=== PATIENT | male | born 1970 | race Caucasian/White ===

== ENCOUNTER 2024-06-25 12:40 | Outpatient (OUT) | payer OTHER, SELFPAY ==
--- NOTE | 2024-06-25 13:15 | RT_ITS ---
[facility] Test Date: 2024-06-25 Pat Name: MANSI GRIDER Department: Room: - Gender: Male [employer] Professor: Regan Montano RRT : 1970 Requested By: [id number] Order Number: [id number] Reading MD: Main Anne Interpretive Statements Spirometry was completed according to ATS criteria. Findings were considered accurate and reproducible. Both pre- and post-bronchodilator values utilized for spirometry. Spirometry (based on pre-bronchodilator values): -FEV1/FVC: Normal @ 77% -FEV1: Mildly reduced @ 76% -FVC: Mildly reduced @ 76% -EYN85-82%: Reduced @ 76% -There is a partial bronchodilator response in FEV1 which meets >200mL increase but <12% change. Flow-volume loop: -Mild restrictive pattern Impressions: -Non-diagnostic spirometry. This pattern could be secondary to obesity causing a restrictive pattern (stated BMI is 38) obscuring an underlying obstructive process such as asthma or COPD. If clinically warranted, consider full PFT including lung volumes and diffusion capacity. Clinical correlation required. Electronically Signed On 06-25-2024 17:34:20 EDT by Main Anne
[2024-06-25] MEDS: ALBUTEROL SULFATE 2.5 MG/3 ML VIAL NEB IH (13:17)
== END 2024-06-25 12:41 | disposition home or self-care (01) ==
PROVIDERS: Visit Provider Chiropractor
DX: R06.02 Shortness of breath (principal)
CPT/HCPCS: 94060